=== PATIENT | male | born 1940 | race Caucasian/White ===

== ENCOUNTER 2021-06-22 10:27 | Inpatient (IN) | payer MEDICARE ==
[2021-06-22 11:07] LABS: #Basophils 0.1 10x3/uL (0.0-0.2); #Eosinphils 0.3 10x3/uL (0.0-0.5); #Monocytes 0.7 10x3/uL (0.0-1.1); #Neutrophils 5.8 10x3/uL (1.5-8.4); %Basophils 0.7 % (0.0-2.0); %Eosinophils 3.5 % (0.0-6.0); %Lymphocytes 9.1 % (18.0-47.0); %Monocytes 9.6 % (0.0-10.0); %Neutrophils 76.1 % (40.0-75.0); Hemoglobin 10.5 g/dL (13.5-17.5); Mean Corpuscular HGB CONC 31.2 g/dL (32.0-36.0); Mean Corpuscular Hemoglobin 32.5 pg (27.0-33.0); Mean Corpuscular Volume 104.3 fl (81.2-95.1); Mean Platelet Volume 9.4 fl (7.4-10.4); Platelet Count 168 10x3/uL (150-450); RBC Distribution Width 18.9 % (11.5-14.5); Red Blood Cell (RBC) Count 3.23 10x6/uL (4.32-5.72); White Blood Cell (WBC) Count 7.6 10x3/uL (3.5-10.5)
[2021-06-22 11:22] LABS: ALT (SGPT) 14 U/L (8-55); AST (SGOT) 21 U/L (5-34); Albumin 3.6 g/dL (3.4-4.8); Alkaline Phosphatase 82 U/L (40-110); Anion Gap 17 mmol/L (10-20); BUN (Urea Nitrogen) 66 mg/dL (8.4-25.7); Bilirubin, Total 0.8 mg/dL (0.2-1.2); Calc. Creatinine Clearance 0 mL/min (70-130); Calcium 9.4 mg/dL (7.8-10.44); Carbon Dioxide 30 mmol/L (23-31); Chloride 94 mmol/L (98-107); Globulin 3.4 g/dL (2.4-3.5); Glucose 257 mg/dL (83-110); Potassium 3.8 mmol/L (3.5-5.1); Sodium 137 mmol/L (136-145)
[2021-06-22] MEDS ORDERED: Furosemide 40 MG/4 ML VIAL ONE (12:51)
[2021-06-22] MEDS ORDERED: Ondansetron PF 4 MG/2 ML Vial IVP PRN (14:24)
[2021-06-22 15:12] LABS: Bilirubin Neg (Negative); Clarity Clear (Clear); Glucose, Urine (Dipstick) Normal (Negative); Leukocyte 25 (Negative); Nitrite Negative (Negative); Urobilinogen Normal mg/dL (Less than 2)
[2021-06-22 15:23] LABS: Urine Culture Reflex No No
[2021-06-22 15:24] LABS: Protein, Urine (Dipstick) Negative (Neg-Trace); Specific Gravity, Urine 1.005 (1.002-1.036)
[2021-06-22 15:25] LABS: Blood, Urine Negative (Negative); Ketone, Urine Negative (Negative)
[2021-06-22 15:30] LABS: Bacteria/HPF None Seen HPF (None Seen); RBC/HPF None Seen HPF (0-3); Squamous Epithelial None Seen HPF (0-3); WBC/HPF 0-3 HPF (0-3)
[2021-06-22] MEDS: Heparin 5,000 UNITS/ML VIAL SC SCH ×2 (17:05→21:09)
[2021-06-22] MEDS ORDERED: Dextrose 5% in Water 1,000 ML IV PRN (21:21)
[2021-06-22] MEDS ORDERED: HumaLOG 300 UNITS/3 ML VIAL SC PRN (21:21)
[2021-06-22] MEDS ORDERED: Dextrose 50% Abboject 50 ML SYRINGE SLOW IVP PRN (21:21)
[2021-06-22] MEDS ORDERED: hydrALAZINE 25 MG TAB PO SCH (22:45)
[2021-06-23] MEDS: Furosemide 100 MG in Sodium Chloride 0.9% 100 ML IVPB SCH ×4 (00:38→20:29)
[2021-06-23 00:58] LABS: SARS-CoV-2 PCR by NAA Not Detected (NotDetected)
[2021-06-23 07:04] LABS: #Basophils 0.1 10x3/uL (0.0-0.2); #Eosinphils 0.4 10x3/uL (0.0-0.5); #Monocytes 0.9 10x3/uL (0.0-1.1); #Neutrophils 5.5 10x3/uL (1.5-8.4); %Basophils 0.8 % (0.0-2.0); %Eosinophils 4.6 % (0.0-6.0); %Lymphocytes 11.1 % (18.0-47.0); %Monocytes 11.3 % (0.0-10.0); %Neutrophils 71.2 % (40.0-75.0); Hemoglobin 10.1 g/dL (13.5-17.5); Mean Corpuscular HGB CONC 30.2 g/dL (32.0-36.0); Mean Corpuscular Hemoglobin 31.7 pg (27.0-33.0); Mean Corpuscular Volume 104.7 fl (81.2-95.1); Mean Platelet Volume 9.3 fl (7.4-10.4); Platelet Count 180 10x3/uL (150-450); RBC Distribution Width 18.7 % (11.5-14.5); Red Blood Cell (RBC) Count 3.19 10x6/uL (4.32-5.72); White Blood Cell (WBC) Count 7.7 10x3/uL (3.5-10.5)
[2021-06-23 07:20] LABS: Prothrombin Time 11.4 sec (9.5-12.1)
[2021-06-23 07:27] LABS: ALT (SGPT) 15 U/L (8-55); AST (SGOT) 21 U/L (5-34); Albumin 3.5 g/dL (3.4-4.8); Alkaline Phosphatase 87 U/L (40-110); Anion Gap 16 mmol/L (10-20); BUN (Urea Nitrogen) 62 mg/dL (8.4-25.7); Bilirubin, Total 0.9 mg/dL (0.2-1.2); Calc. Creatinine Clearance 44 mL/min (70-130); Calcium 8.5 mg/dL (7.8-10.44); Carbon Dioxide 32 mmol/L (23-31); Chloride 98 mmol/L (98-107); Cholesterol 90 mg/dl (< 200 Desired); Globulin 2.7 g/dL (2.4-3.5); Glucose 87 mg/dL (83-110); HDL Cholesterol 30 mg/dL (>60 Neg Risk); LDL Cholesterol, Calculated 36 mg/dL; Magnesium 2.2 mg/dL (1.6-2.6); Phosphorus 4.8 mg/dL (2.3-4.7); Potassium 3.8 mmol/L (3.5-5.1); Protein, Total 6.2 g/dL (5.8-8.1); Sodium 142 mmol/L (136-145); Triglycerides 122 mg/dL (Less than 150)
[2021-06-23] MEDS: Clobetasol 0.05% Cream 15 gm Tube TOP SCH ×2 (09:00→20:36)
[2021-06-23] MEDS: Atorvastatin Calcium 40 MG TAB PO SCH (09:33)
[2021-06-23] MEDS: Clopidogrel Bisulfate 75 MG TAB PO SCH (09:33)
[2021-06-23] MEDS: Carvedilol 25 MG TAB PO SCH ×2 (09:33→16:01)
[2021-06-23] MEDS: Cholecalciferol 1,000 UNITS (25 MCG) TAB PO SCH (09:33)
[2021-06-23] MEDS: Heparin 5,000 UNITS/ML VIAL SC SCH ×3 (09:34→20:02)
[2021-06-23] MEDS: Amlodipine 10 MG TAB PO SCH (09:34)
[2021-06-23] MEDS: hydrALAZINE 25 MG TAB PO SCH ×3 (10:10→20:02)
[2021-06-23 11:28] LABS: Hemoglobin A1c 4.8 % (4.0-6.0)
[2021-06-24 05:27] LABS: #Basophils 0.1 10x3/uL (0.0-0.2); #Eosinphils 0.3 10x3/uL (0.0-0.5); #Monocytes 0.9 10x3/uL (0.0-1.1); #Neutrophils 4.9 10x3/uL (1.5-8.4); %Basophils 0.7 % (0.0-2.0); %Eosinophils 3.6 % (0.0-6.0); %Lymphocytes 10.5 % (18.0-47.0); %Neutrophils 71.5 % (40.0-75.0); Hemoglobin 9.9 g/dL (13.5-17.5); Mean Corpuscular Hemoglobin 32.5 pg (27.0-33.0); Mean Corpuscular Volume 104.6 fl (81.2-95.1); Mean Platelet Volume 9.2 fl (7.4-10.4); Platelet Count 167 10x3/uL (150-450); RBC Distribution Width 18.4 % (11.5-14.5); Red Blood Cell (RBC) Count 3.05 10x6/uL (4.32-5.72); White Blood Cell (WBC) Count 6.9 10x3/uL (3.5-10.5)
[2021-06-24 05:44] LABS: Prothrombin Time 11.2 sec (9.5-12.1)
[2021-06-24 05:45] LABS: ALT (SGPT) 14 U/L (8-55); AST (SGOT) 19 U/L (5-34); Albumin 3.5 g/dL (3.4-4.8); Alkaline Phosphatase 80 U/L (40-110); Anion Gap 14 mmol/L (10-20); BUN (Urea Nitrogen) 62 mg/dL (8.4-25.7); Bilirubin, Total 0.9 mg/dL (0.2-1.2); Calc. Creatinine Clearance 42 mL/min (70-130); Calcium 8.3 mg/dL (7.8-10.44); Carbon Dioxide 35 mmol/L (23-31); Chloride 98 mmol/L (98-107); Globulin 2.7 g/dL (2.4-3.5); Glucose 98 mg/dL (83-110); Magnesium 2.3 mg/dL (1.6-2.6); Phosphorus 5.1 mg/dL (2.3-4.7); Potassium 3.4 mmol/L (3.5-5.1); Protein, Total 6.2 g/dL (5.8-8.1); Sodium 144 mmol/L (136-145)
[2021-06-24] MEDS: Furosemide 100 MG in Sodium Chloride 0.9% 100 ML IVPB SCH ×2 (05:51→11:59)
[2021-06-24 05:58] VITALS: BMI 41.5
[2021-06-24] MEDS ORDERED: Potassium Chloride 20 MEQ TAB PO SCH (07:30)
[2021-06-24] MEDS: Cholecalciferol 1,000 UNITS (25 MCG) TAB PO SCH (08:58)
[2021-06-24] MEDS: hydrALAZINE 25 MG TAB PO SCH ×3 (08:59→20:53)
[2021-06-24] MEDS: Carvedilol 25 MG TAB PO SCH ×2 (08:59→15:55)
[2021-06-24] MEDS: Clopidogrel Bisulfate 75 MG TAB PO SCH (09:00)
[2021-06-24] MEDS: Heparin 5,000 UNITS/ML VIAL SC SCH ×3 (09:00→20:52)
[2021-06-24] MEDS: Atorvastatin Calcium 40 MG TAB PO SCH (09:00)
[2021-06-24] MEDS: Amlodipine 10 MG TAB PO SCH (09:00)
[2021-06-24] MEDS: Clobetasol 0.05% Cream 15 gm Tube TOP SCH ×2 (09:01→21:03)
[2021-06-24] MEDS: Acetaminophen 325 MG TAB PO PRN (09:48)
[2021-06-24 15:26] LABS: Anion Gap 15 mmol/L (10-20); BUN (Urea Nitrogen) 60 mg/dL (8.4-25.7); Calc. Creatinine Clearance 42 mL/min (70-130); Calcium 8.5 mg/dL (7.8-10.44); Carbon Dioxide 32 mmol/L (23-31); Chloride 98 mmol/L (98-107); Glucose 187 mg/dL (83-110); Potassium 4.2 mmol/L (3.5-5.1); Sodium 141 mmol/L (136-145)
[2021-06-24] MEDS ORDERED: Torsemide 100 MG TAB PO SCH (16:00)
[2021-06-25 04:45] LABS: #Eosinphils 0.3 10x3/uL (0.0-0.5); #Monocytes 0.8 10x3/uL (0.0-1.1); %Basophils 0.5 % (0.0-2.0); %Eosinophils 4.3 % (0.0-6.0); %Monocytes 13.7 % (0.0-10.0); %Neutrophils 65.8 % (40.0-75.0); Hemoglobin 9.7 g/dL (13.5-17.5); Mean Corpuscular HGB CONC 30.1 g/dL (32.0-36.0); Mean Corpuscular Volume 106.3 fl (81.2-95.1); Mean Platelet Volume 8.7 fl (7.4-10.4); Platelet Count 166 10x3/uL (150-450); RBC Distribution Width 17.9 % (11.5-14.5); Red Blood Cell (RBC) Count 3.03 10x6/uL (4.32-5.72); White Blood Cell (WBC) Count 6.1 10x3/uL (3.5-10.5)
[2021-06-25 05:03] LABS: Prothrombin Time 11.3 sec (9.5-12.1)
[2021-06-25 05:34] LABS: ALT (SGPT) 13 U/L (8-55); AST (SGOT) 17 U/L (5-34); Albumin 3.6 g/dL (3.4-4.8); Alkaline Phosphatase 78 U/L (40-110); Anion Gap 15 mmol/L (10-20); BUN (Urea Nitrogen) 64 mg/dL (8.4-25.7); Bilirubin, Total 0.8 mg/dL (0.2-1.2); Calc. Creatinine Clearance 43 mL/min (70-130); Calcium 8.4 mg/dL (7.8-10.44); Carbon Dioxide 33 mmol/L (23-31); Chloride 99 mmol/L (98-107); Globulin 2.7 g/dL (2.4-3.5); Glucose 107 mg/dL (83-110); Magnesium 2.2 mg/dL (1.6-2.6); Phosphorus 3.9 mg/dL (2.3-4.7); Potassium 3.6 mmol/L (3.5-5.1); Protein, Total 6.3 g/dL (5.8-8.1); Sodium 143 mmol/L (136-145)
[2021-06-25] MEDS: Acetaminophen 325 MG TAB PO PRN (06:41)
[2021-06-25] MEDS ORDERED: traMADol HCl 50 MG TAB PO PRN ×2 (07:46→13:32)
[2021-06-25] MEDS: Clopidogrel Bisulfate 75 MG TAB PO SCH (08:01)
[2021-06-25] MEDS: hydrALAZINE 25 MG TAB PO SCH ×3 (08:01→20:14)
[2021-06-25] MEDS: Carvedilol 25 MG TAB PO SCH ×2 (08:01→16:25)
[2021-06-25] MEDS: Atorvastatin Calcium 40 MG TAB PO SCH (08:02)
[2021-06-25] MEDS: Cholecalciferol 1,000 UNITS (25 MCG) TAB PO SCH (08:02)
[2021-06-25] MEDS: Amlodipine 10 MG TAB PO SCH (08:02)
[2021-06-25] MEDS: Torsemide 100 MG TAB PO SCH ×2 (08:03→15:51)
[2021-06-25] MEDS: Heparin 5,000 UNITS/ML VIAL SC SCH ×3 (08:04→20:14)
[2021-06-25] MEDS: Clobetasol 0.05% Cream 15 gm Tube TOP SCH ×2 (08:04→20:14)
[2021-06-25] MEDS: HYDROcodone/Acetaminophen 5/325 mg Tablet PO PRN ×2 (08:21→12:28)
[2021-06-25] MEDS: Cyclobenzaprine 10 MG TAB PO SCH ×3 (09:28→20:13)
[2021-06-25] MEDS: Lidocaine 5% Patch TD SCH (09:28)
[2021-06-25] MEDS ORDERED: Metolazone 5 MG TAB PO SCH (15:30)
[2021-06-25] MEDS ORDERED: Furosemide 40 MG/4 ML VIAL SLOW IVP SCH (16:45)
[2021-06-25] MEDS ORDERED: Transdermal Patch Removal TOP SCH (21:00)
[2021-06-26] MEDS: HYDROcodone/Acetaminophen 5/325 mg Tablet PO PRN ×3 (00:17→11:51)
[2021-06-26 06:19] LABS: #Basophils 0.1 10x3/uL (0.0-0.2); #Eosinphils 0.3 10x3/uL (0.0-0.5); #Monocytes 0.8 10x3/uL (0.0-1.1); #Neutrophils 4.1 10x3/uL (1.5-8.4); %Basophils 0.8 % (0.0-2.0); %Eosinophils 4.6 % (0.0-6.0); %Lymphocytes 14.5 % (18.0-47.0); %Monocytes 13.7 % (0.0-10.0); %Neutrophils 65.7 % (40.0-75.0); Hemoglobin 10.3 g/dL (13.5-17.5); Mean Corpuscular HGB CONC 30.3 g/dL (32.0-36.0); Mean Corpuscular Volume 105.6 fl (81.2-95.1); Mean Platelet Volume 9.3 fl (7.4-10.4); Platelet Count 162 10x3/uL (150-450); RBC Distribution Width 17.2 % (11.5-14.5); Red Blood Cell (RBC) Count 3.22 10x6/uL (4.32-5.72); White Blood Cell (WBC) Count 6.2 10x3/uL (3.5-10.5)
[2021-06-26 06:34] LABS: Prothrombin Time 11.1 sec (9.5-12.1)
[2021-06-26 06:53] LABS: ALT (SGPT) 14 U/L (8-55); AST (SGOT) 19 U/L (5-34); Albumin 3.7 g/dL (3.4-4.8); Alkaline Phosphatase 78 U/L (40-110); Anion Gap 16 mmol/L (10-20); BUN (Urea Nitrogen) 67 mg/dL (8.4-25.7); Bilirubin, Total 0.9 mg/dL (0.2-1.2); Calc. Creatinine Clearance 18 mL/min (70-130); Calcium 8.6 mg/dL (7.8-10.44); Carbon Dioxide 33 mmol/L (23-31); Chloride 96 mmol/L (98-107); Globulin 2.9 g/dL (2.4-3.5); Glucose 116 mg/dL (83-110); Magnesium 2.1 mg/dL (1.6-2.6); Phosphorus 4.5 mg/dL (2.3-4.7); Potassium 3.2 mmol/L (3.5-5.1); Protein, Total 6.6 g/dL (5.8-8.1); Sodium 142 mmol/L (136-145)
[2021-06-26] MEDS ORDERED: Potassium Chloride 20 MEQ TAB PO SCH ×2 (08:00→17:00)
[2021-06-26] MEDS: Clopidogrel Bisulfate 75 MG TAB PO SCH (09:13)
[2021-06-26] MEDS: Lidocaine 5% Patch TD SCH (09:13)
[2021-06-26] MEDS: Heparin 5,000 UNITS/ML VIAL SC SCH ×2 (09:14→16:17)
[2021-06-26] MEDS: Cholecalciferol 1,000 UNITS (25 MCG) TAB PO SCH (09:14)
[2021-06-26] MEDS: Atorvastatin Calcium 40 MG TAB PO SCH (09:14)
[2021-06-26] MEDS: Amlodipine 10 MG TAB PO SCH (09:14)
[2021-06-26] MEDS: Carvedilol 25 MG TAB PO SCH (09:14)
[2021-06-26] MEDS: hydrALAZINE 25 MG TAB PO SCH ×2 (09:15→14:41)
[2021-06-26] MEDS: Torsemide 100 MG TAB PO SCH ×2 (09:15→14:55)
[2021-06-26] MEDS: Cyclobenzaprine 10 MG TAB PO SCH ×2 (09:15→14:41)
[2021-06-26] MEDS: Clobetasol 0.05% Cream 15 gm Tube TOP SCH (09:15)
[2021-06-26 12:01] VITALS: BP 137/65; TEMP 97.4
[2021-06-26] MEDS ORDERED: Transdermal Patch Removal TOP SCH (21:00)
== END 2021-06-26 16:17 | disposition home or self-care (01) | DRG 291 ==
LOC: CSHERS 10:27 → CSHTELE 14:37
PROVIDERS: ADMIT Family Medicine; ATTEND Family Medicine
DX: I13.0 Hypertensive heart and chronic kidney disease with heart failure and stage 1 through stage 4 chronic kidney disease, or unspecified chronic kidney disease (principal); I50.43 Acute on chronic combined systolic (congestive) and diastolic (congestive) heart failure; J96.01 Acute respiratory failure with hypoxia; N18.4 Chronic kidney disease, stage 4 (severe); N17.9 Acute kidney failure, unspecified; Z20.822 Contact with and (suspected) exposure to COVID-19; Z68.43 Body mass index [BMI] 50.0-59.9, adult; E11.22 Type 2 diabetes mellitus with diabetic chronic kidney disease; E11.65 Type 2 diabetes mellitus with hyperglycemia; I25.10 Atherosclerotic heart disease of native coronary artery without angina pectoris; D50.9 Iron deficiency anemia, unspecified; D63.1 Anemia in chronic kidney disease; Z95.1 Presence of aortocoronary bypass graft; Z87.891 Personal history of nicotine dependence; Z95.2 Presence of prosthetic heart valve; Z82.5 Family history of asthma and other chronic lower respiratory diseases; E11.51 Type 2 diabetes mellitus with diabetic peripheral angiopathy without gangrene; G47.30 Sleep apnea, unspecified; E87.6 Hypokalemia; E66.01 Morbid (severe) obesity due to excess calories; M54.89 Other dorsalgia; Z79.84 Long term (current) use of oral hypoglycemic drugs; Z79.891 Long term (current) use of opiate analgesic; Z79.899 Other long term (current) drug therapy
CPT/HCPCS: 36415; 36416; 71045; 80053; 80061; 81001; 83036; 83735; 83880; 84100; 84145; 84443; 84484; 85025; 85610; 87086; 93005; 93306; 94760; 96374; 97139; J1644; J1940; J3490; U0003; U0005

== ENCOUNTER 2021-10-14 14:06 | Inpatient (IN) | payer MEDICARE ==
[2021-10-14 14:39] LABS: #Basophils 0.1 10x3/uL (0.0-0.2); #Eosinphils 0.3 10x3/uL (0.0-0.5); #Monocytes 0.9 10x3/uL (0.0-1.1); #Neutrophils 6.1 10x3/uL (1.5-8.4); %Basophils 0.6 % (0.0-2.0); %Lymphocytes 10.9 % (18.0-47.0); %Neutrophils 72.2 % (40.0-75.0); Hemoglobin 10.3 g/dL (13.5-17.5); Mean Corpuscular HGB CONC 31.1 g/dL (32.0-36.0); Mean Corpuscular Hemoglobin 32.1 pg (27.0-33.0); Mean Corpuscular Volume 103.1 fl (81.2-95.1); Platelet Count 161 10x3/uL (150-450); RBC Distribution Width 16.4 % (11.5-14.5); Red Blood Cell (RBC) Count 3.21 10x6/uL (4.32-5.72); White Blood Cell (WBC) Count 8.5 10x3/uL (3.5-10.5)
[2021-10-14 14:51] LABS: ALT (SGPT) 17 U/L (8-55); AST (SGOT) 21 U/L (5-34); Alkaline Phosphatase 76 U/L (40-110); Anion Gap 15 mmol/L (10-20); BUN (Urea Nitrogen) 107 mg/dL (8.4-25.7); Calc. Creatinine Clearance 0 mL/min (70-130); Calcium 8.7 mg/dL (7.8-10.44); Carbon Dioxide 32 mmol/L (23-31); Chloride 94 mmol/L (98-107); Glucose 229 mg/dL (83-110); Potassium 3.3 mmol/L (3.5-5.1); Sodium 138 mmol/L (136-145)
[2021-10-14] MEDS ORDERED: Potassium Chloride 20 MEQ TAB ONE (15:04)
[2021-10-14] MEDS ORDERED: Furosemide 100 MG/10 ML VIAL ONE (15:04)
[2021-10-14 15:13] LABS: CKMB 0.9 ng/mL (0-6.6)
[2021-10-14] MEDS ORDERED: Ondansetron PF 4 MG/2 ML Vial IVP PRN (16:52)
[2021-10-14] MEDS ORDERED: Acetaminophen 325 MG TAB PO PRN (16:52)
[2021-10-14 17:56] LABS: Troponin I 0.025 ng/mL (< 0.028)
[2021-10-14 18:26] VITALS: BMI 40.7
[2021-10-14] MEDS: Carvedilol 25 MG TAB PO SCH (20:24)
[2021-10-14] MEDS: Spironolactone 25 MG TAB PO SCH (20:24)
[2021-10-14] MEDS: Ferrous Sulfate 325 MG TAB PO SCH (20:24)
[2021-10-14 20:35] LABS: Troponin I 0.035 ng/mL (< 0.028)
[2021-10-14] MEDS ORDERED: Loratadine 10 MG TAB PO SCH (20:45)
[2021-10-14] MEDS ORDERED: Furosemide 40 MG/4 ML VIAL SLOW IVP SCH (21:00)
[2021-10-14] MEDS ORDERED: Furosemide 100 MG/10 ML VIAL SLOW IVP SCH (21:00)
[2021-10-15] MEDS: Furosemide 100 MG/10 ML VIAL SLOW IVP SCH ×2 (05:23→13:40)
[2021-10-15 06:16] LABS: Anion Gap 17 mmol/L (10-20); BUN (Urea Nitrogen) 102 mg/dL (8.4-25.7); Calc. Creatinine Clearance 34 mL/min (70-130); Carbon Dioxide 31 mmol/L (23-31); Chloride 97 mmol/L (98-107); Glucose 75 mg/dL (83-110); Potassium 3.2 mmol/L (3.5-5.1); Sodium 142 mmol/L (136-145)
[2021-10-15 06:59] LABS: #Eosinphils 0.5 10x3/uL (0.0-0.5); #Monocytes 0.9 10x3/uL (0.0-1.1); #Neutrophils 5.2 10x3/uL (1.5-8.4); %Basophils 0.5 % (0.0-2.0); %Eosinophils 6.5 % (0.0-6.0); %Lymphocytes 11.6 % (18.0-47.0); %Monocytes 11.8 % (0.0-10.0); %Neutrophils 68.7 % (40.0-75.0); Mean Corpuscular HGB CONC 31.2 g/dL (32.0-36.0); Mean Corpuscular Hemoglobin 32.3 pg (27.0-33.0); Mean Corpuscular Volume 103.5 fl (81.2-95.1); Mean Platelet Volume 9.4 fl (7.4-10.4); Platelet Count 161 10x3/uL (150-450); RBC Distribution Width 16.7 % (11.5-14.5); White Blood Cell (WBC) Count 7.6 10x3/uL (3.5-10.5)
[2021-10-15] MEDS: Clopidogrel Bisulfate 75 MG TAB PO SCH (08:32)
[2021-10-15] MEDS: Enoxaparin Sodium 30 MG/0.3 ML SYRINGE SC SCH (08:32)
[2021-10-15] MEDS: Atorvastatin Calcium 40 MG TAB PO SCH (08:32)
[2021-10-15] MEDS: Folic Acid 1 MG TAB PO SCH (08:32)
[2021-10-15] MEDS: Ferrous Sulfate 325 MG TAB PO SCH ×2 (08:33→20:28)
[2021-10-15] MEDS: Carvedilol 25 MG TAB PO SCH ×2 (08:33→20:42)
[2021-10-15] MEDS: Cyanocobalamin (Vitamin B-12) 1,000 MCG TAB PO SCH (08:33)
[2021-10-15] MEDS: Cholecalciferol 1,000 UNITS (25 MCG) TAB PO SCH (08:33)
[2021-10-15] MEDS: Spironolactone 25 MG TAB PO SCH ×2 (08:33→20:28)
[2021-10-15] MEDS ORDERED: Melatonin 3 MG TAB PO PRN (16:01)
[2021-10-15] MEDS ORDERED: hydrOXYzine Pamoate 25 mg Capsule PO PRN (16:02)
[2021-10-15 16:49] LABS: SARS-CoV-2 PCR by NAA Not Detected (NotDetected)
[2021-10-15] MEDS ORDERED: Carvedilol 25 MG TAB ONE (19:58)
[2021-10-15] MEDS: hydrALAZINE 25 MG TAB PO SCH (22:01)
[2021-10-16 04:23] LABS: #Eosinphils 0.5 10x3/uL (0.0-0.5); #Monocytes 1.1 10x3/uL (0.0-1.1); #Neutrophils 5.6 10x3/uL (1.5-8.4); %Basophils 0.5 % (0.0-2.0); %Lymphocytes 13.2 % (18.0-47.0); %Monocytes 12.6 % (0.0-10.0); %Neutrophils 66.7 % (40.0-75.0); Hemoglobin 10.6 g/dL (13.5-17.5); Mean Corpuscular HGB CONC 31.6 g/dL (32.0-36.0); Mean Corpuscular Hemoglobin 32.2 pg (27.0-33.0); Mean Corpuscular Volume 101.8 fl (81.2-95.1); Mean Platelet Volume 9.3 fl (7.4-10.4); Platelet Count 163 10x3/uL (150-450); RBC Distribution Width 16.3 % (11.5-14.5); Red Blood Cell (RBC) Count 3.29 10x6/uL (4.32-5.72); White Blood Cell (WBC) Count 8.4 10x3/uL (3.5-10.5)
[2021-10-16 04:41] LABS: Anion Gap 18 mmol/L (10-20); BUN (Urea Nitrogen) 96 mg/dL (8.4-25.7); Calc. Creatinine Clearance 39 mL/min (70-130); Calcium 9.4 mg/dL (7.8-10.44); Carbon Dioxide 30 mmol/L (23-31); Chloride 97 mmol/L (98-107); Glucose 102 mg/dL (83-110); Potassium 3.2 mmol/L (3.5-5.1); Sodium 142 mmol/L (136-145)
[2021-10-16] MEDS: hydrALAZINE 25 MG TAB PO SCH ×2 (05:43→14:40)
[2021-10-16] MEDS: Furosemide 100 MG/10 ML VIAL SLOW IVP SCH ×2 (05:44→14:41)
[2021-10-16] MEDS ORDERED: glipiZIDE 10 MG TAB PO SCH (07:30)
[2021-10-16] MEDS ORDERED: Amlodipine 10 MG TAB PO SCH (09:00)
[2021-10-16] MEDS: Atorvastatin Calcium 40 MG TAB PO SCH (09:06)
[2021-10-16] MEDS: Enoxaparin Sodium 30 MG/0.3 ML SYRINGE SC SCH (09:06)
[2021-10-16] MEDS: Cyanocobalamin (Vitamin B-12) 1,000 MCG TAB PO SCH (09:06)
[2021-10-16] MEDS: Clopidogrel Bisulfate 75 MG TAB PO SCH (09:06)
[2021-10-16] MEDS: Spironolactone 25 MG TAB PO SCH (09:06)
[2021-10-16] MEDS: Folic Acid 1 MG TAB PO SCH (09:06)
[2021-10-16] MEDS: Carvedilol 25 MG TAB PO SCH (09:06)
[2021-10-16] MEDS: Ferrous Sulfate 325 MG TAB PO SCH (09:06)
[2021-10-16] MEDS: Cholecalciferol 1,000 UNITS (25 MCG) TAB PO SCH (09:06)
[2021-10-16 15:57] VITALS: BP 149/63; TEMP 97.7
[2021-10-17] MEDS ORDERED: Heparin 5,000 UNITS/ML VIAL SC SCH (09:00)
== END 2021-10-16 15:40 | disposition home or self-care (01) | DRG 291 ==
LOC: CSHERS 14:06 → CSHTELE 16:29
PROVIDERS: ADMIT Internal Medicine; ATTEND Hospitalist
DX: I13.0 Hypertensive heart and chronic kidney disease with heart failure and stage 1 through stage 4 chronic kidney disease, or unspecified chronic kidney disease (principal); I50.43 Acute on chronic combined systolic (congestive) and diastolic (congestive) heart failure; J96.01 Acute respiratory failure with hypoxia; N18.4 Chronic kidney disease, stage 4 (severe); N17.9 Acute kidney failure, unspecified; Z68.41 Body mass index [BMI] 40.0-44.9, adult; E11.65 Type 2 diabetes mellitus with hyperglycemia; G47.33 Obstructive sleep apnea (adult) (pediatric); I25.10 Atherosclerotic heart disease of native coronary artery without angina pectoris; E87.6 Hypokalemia; D63.1 Anemia in chronic kidney disease; K21.9 Gastro-esophageal reflux disease without esophagitis; E11.51 Type 2 diabetes mellitus with diabetic peripheral angiopathy without gangrene; Z20.822 Contact with and (suspected) exposure to COVID-19; E66.01 Morbid (severe) obesity due to excess calories; E11.22 Type 2 diabetes mellitus with diabetic chronic kidney disease; D50.9 Iron deficiency anemia, unspecified; Z79.899 Other long term (current) drug therapy; Z79.02 Long term (current) use of antithrombotics/antiplatelets; Z95.1 Presence of aortocoronary bypass graft; Z87.891 Personal history of nicotine dependence; Z95.3 Presence of xenogenic heart valve
CPT/HCPCS: 36415; 71045; 80048; 80053; 82553; 83880; 84484; 85025; 93005; 96374; J1650; J1940; U0003; U0005

== ENCOUNTER 2021-11-13 15:15 | Inpatient (IN) | payer MEDICARE ==
[2021-11-13] MEDS ORDERED: Aspirin Chewable 81 MG TAB ONE (15:41)
[2021-11-13] MEDS ORDERED: Nitroglycerin 0.4 MG TAB 1 EACH ONE (15:42)
[2021-11-13 15:57] LABS: #Basophils 0.1 10x3/uL (0.0-0.2); #Eosinphils 0.5 10x3/uL (0.0-0.5); #Monocytes 0.9 10x3/uL (0.0-1.1); %Basophils 0.7 % (0.0-2.0); %Eosinophils 5.3 % (0.0-6.0); %Lymphocytes 10.8 % (18.0-47.0); %Monocytes 10.7 % (0.0-10.0); %Neutrophils 70.8 % (40.0-75.0); Hemoglobin 9.9 g/dL (13.5-17.5); Mean Corpuscular Hemoglobin 32.6 pg (27.0-33.0); Mean Corpuscular Volume 104.9 fl (81.2-95.1); Mean Platelet Volume 9.4 fl (7.4-10.4); Platelet Count 149 10x3/uL (150-450); RBC Distribution Width 16.9 % (11.5-14.5); Red Blood Cell (RBC) Count 3.04 10x6/uL (4.32-5.72); White Blood Cell (WBC) Count 8.4 10x3/uL (3.5-10.5)
[2021-11-13 16:04] LABS: ALT (SGPT) 16 U/L (8-55); AST (SGOT) 21 U/L (5-34); Albumin 3.9 g/dL (3.4-4.8); Alkaline Phosphatase 69 U/L (40-110); Anion Gap 19 mmol/L (10-20); BUN (Urea Nitrogen) 96 mg/dL (8.4-25.7); Calc. Creatinine Clearance 0 mL/min (70-130); Calcium 8.9 mg/dL (7.8-10.44); Carbon Dioxide 32 mmol/L (23-31); Chloride 94 mmol/L (98-107); Globulin 2.7 g/dL (2.4-3.5); Glucose 175 mg/dL (83-110); Potassium 3.4 mmol/L (3.5-5.1); Protein, Total 6.6 g/dL (5.8-8.1); Sodium 142 mmol/L (136-145)
[2021-11-13 16:22] LABS: CKMB 1.1 ng/mL (0-6.6)
[2021-11-13] MEDS ORDERED: Furosemide 40 MG/4 ML VIAL ONE (16:25)
[2021-11-13 16:32] LABS: Bilirubin Neg (Negative); Blood, Urine Negative (Negative); Clarity Clear (Clear); Glucose, Urine (Dipstick) Normal (Negative); Ketone, Urine Negative (Negative); Leukocyte Negative (Negative); Nitrite Negative (Negative); Protein, Urine (Dipstick) Negative (Neg-Trace); Urobilinogen Normal mg/dL (Less than 2)
[2021-11-13] MEDS ORDERED: Acetaminophen 325 MG TAB PO PRN (17:14)
[2021-11-13 17:17] LABS: SARS-CoV-2 NAA Rapid Test Not Detected (NotDetected)
[2021-11-13] MEDS ORDERED: Dextrose 5% in Water 1,000 ML IV PRN (17:46)
[2021-11-13] MEDS ORDERED: Dextrose 50% Abboject 50 ML SYRINGE SLOW IVP PRN (17:46)
[2021-11-13 18:46] VITALS: BMI 40.8
[2021-11-13] MEDS: hydrALAZINE 25 MG TAB PO SCH (20:48)
[2021-11-13] MEDS: Carvedilol 25 MG TAB PO SCH (20:48)
[2021-11-13] MEDS: Spironolactone 25 MG TAB PO SCH (20:48)
[2021-11-13] MEDS: traZODone HCl 50 MG TAB PO PRN (22:17)
[2021-11-14 04:41] LABS: #Basophils 0.1 10x3/uL (0.0-0.2); #Eosinphils 0.5 10x3/uL (0.0-0.5); #Monocytes 0.9 10x3/uL (0.0-1.1); #Neutrophils 5.9 10x3/uL (1.5-8.4); %Basophils 0.7 % (0.0-2.0); %Eosinophils 6.1 % (0.0-6.0); %Lymphocytes 10.1 % (18.0-47.0); %Monocytes 10.5 % (0.0-10.0); %Neutrophils 71.4 % (40.0-75.0); Hemoglobin 9.2 g/dL (13.5-17.5); Mean Corpuscular HGB CONC 31.1 g/dL (32.0-36.0); Mean Corpuscular Hemoglobin 33.2 pg (27.0-33.0); Mean Corpuscular Volume 106.9 fl (81.2-95.1); Mean Platelet Volume 9.7 fl (7.4-10.4); Platelet Count 139 10x3/uL (150-450); RBC Distribution Width 16.7 % (11.5-14.5); Red Blood Cell (RBC) Count 2.77 10x6/uL (4.32-5.72); White Blood Cell (WBC) Count 8.3 10x3/uL (3.5-10.5)
[2021-11-14 05:12] LABS: Anion Gap 18 mmol/L (10-20); BUN (Urea Nitrogen) 93 mg/dL (8.4-25.7); Calc. Creatinine Clearance 39 mL/min (70-130); Calcium 8.9 mg/dL (7.8-10.44); Carbon Dioxide 34 mmol/L (23-31); Chloride 94 mmol/L (98-107); Glucose 68 mg/dL (83-110); Sodium 143 mmol/L (136-145)
[2021-11-14] MEDS: Furosemide 40 MG/4 ML VIAL SLOW IVP SCH ×2 (06:20→14:21)
[2021-11-14] MEDS ORDERED: Potassium Chloride 20 MEQ TAB PO SCH (09:30)
[2021-11-14] MEDS: Enoxaparin Sodium 30 MG/0.3 ML SYRINGE SC SCH (09:41)
[2021-11-14] MEDS: Cholecalciferol 1,000 UNITS (25 MCG) TAB PO SCH (09:42)
[2021-11-14] MEDS: hydrALAZINE 25 MG TAB PO SCH ×3 (09:42→20:22)
[2021-11-14] MEDS: Amlodipine 10 MG TAB PO SCH (09:43)
[2021-11-14] MEDS: Clopidogrel Bisulfate 75 MG TAB PO SCH (09:43)
[2021-11-14] MEDS: Spironolactone 25 MG TAB PO SCH ×2 (09:43→20:20)
[2021-11-14] MEDS: Folic Acid 1 MG TAB PO SCH (09:43)
[2021-11-14] MEDS: Famotidine 20 MG TAB PO SCH (09:43)
[2021-11-14] MEDS: Atorvastatin Calcium 40 MG TAB PO SCH (09:43)
[2021-11-14] MEDS: Carvedilol 25 MG TAB PO SCH ×2 (09:44→20:22)
[2021-11-14] MEDS: glipiZIDE 10 MG TAB PO SCH (09:46)
[2021-11-14] MEDS: Pioglitazone HCl 45 MG TAB PO SCH (09:47)
[2021-11-14] MEDS: traZODone HCl 50 MG TAB PO PRN (21:56)
[2021-11-14] MEDS: HumaLOG 300 UNITS/3 ML VIAL SC PRN (22:55)
[2021-11-15 04:40] LABS: #Basophils 0.1 10x3/uL (0.0-0.2); #Eosinphils 0.4 10x3/uL (0.0-0.5); #Neutrophils 5.4 10x3/uL (1.5-8.4); %Basophils 0.6 % (0.0-2.0); %Eosinophils 5.1 % (0.0-6.0); %Lymphocytes 11.1 % (18.0-47.0); %Monocytes 12.7 % (0.0-10.0); %Neutrophils 69.5 % (40.0-75.0); Hemoglobin 9.1 g/dL (13.5-17.5); Mean Corpuscular HGB CONC 30.7 g/dL (32.0-36.0); Mean Corpuscular Volume 107.2 fl (81.2-95.1); Mean Platelet Volume 9.2 fl (7.4-10.4); Platelet Count 136 10x3/uL (150-450); RBC Distribution Width 16.9 % (11.5-14.5); Red Blood Cell (RBC) Count 2.76 10x6/uL (4.32-5.72); White Blood Cell (WBC) Count 7.8 10x3/uL (3.5-10.5)
[2021-11-15 04:55] LABS: Anion Gap 21 mmol/L (10-20); BUN (Urea Nitrogen) 97 mg/dL (8.4-25.7); Calc. Creatinine Clearance 0 mL/min (70-130); Calcium 8.7 mg/dL (7.8-10.44); Carbon Dioxide 30 mmol/L (23-31); Chloride 96 mmol/L (98-107); Glucose 82 mg/dL (83-110); Magnesium 2.5 mg/dL (1.6-2.6); Potassium 3.7 mmol/L (3.5-5.1); Sodium 143 mmol/L (136-145)
[2021-11-15 05:29] LABS: Hypochromia SLIGHT = 6-15 cells (100X) (0-5/hpf); Macrocytosis SLIGHT = 6-15 cells (100X) (0-5/hpf); Platelet Morphology Comment Appears Adequate
[2021-11-15] MEDS: Furosemide 40 MG/4 ML VIAL SLOW IVP SCH ×2 (06:57→13:40)
[2021-11-15] MEDS: Pioglitazone HCl 45 MG TAB PO SCH (08:16)
[2021-11-15] MEDS: Folic Acid 1 MG TAB PO SCH (08:17)
[2021-11-15] MEDS: Cholecalciferol 1,000 UNITS (25 MCG) TAB PO SCH (08:17)
[2021-11-15] MEDS: Clopidogrel Bisulfate 75 MG TAB PO SCH (08:18)
[2021-11-15] MEDS: glipiZIDE 10 MG TAB PO SCH (08:18)
[2021-11-15] MEDS: Amlodipine 10 MG TAB PO SCH (08:18)
[2021-11-15] MEDS: Carvedilol 25 MG TAB PO SCH ×2 (08:19→20:29)
[2021-11-15] MEDS: Famotidine 20 MG TAB PO SCH (08:19)
[2021-11-15] MEDS: Atorvastatin Calcium 40 MG TAB PO SCH (08:19)
[2021-11-15] MEDS: hydrALAZINE 25 MG TAB PO SCH ×3 (08:20→20:30)
[2021-11-15] MEDS: Spironolactone 25 MG TAB PO SCH ×2 (08:20→20:29)
[2021-11-15] MEDS: Enoxaparin Sodium 30 MG/0.3 ML SYRINGE SC SCH (08:21)
[2021-11-15] MEDS: HumaLOG 300 UNITS/3 ML VIAL SC PRN (22:30)
[2021-11-16 05:01] LABS: #Eosinphils 0.4 10x3/uL (0.0-0.5); #Monocytes 0.8 10x3/uL (0.0-1.1); #Neutrophils 4.7 10x3/uL (1.5-8.4); %Basophils 0.4 % (0.0-2.0); %Lymphocytes 11.6 % (18.0-47.0); %Monocytes 12.3 % (0.0-10.0); %Neutrophils 68.8 % (40.0-75.0); Hemoglobin 7.9 g/dL (13.5-17.5); Mean Corpuscular HGB CONC 30.5 g/dL (32.0-36.0); Mean Corpuscular Hemoglobin 32.9 pg (27.0-33.0); Mean Corpuscular Volume 107.9 fl (81.2-95.1); Mean Platelet Volume 9.9 fl (7.4-10.4); Platelet Count 131 10x3/uL (150-450); RBC Distribution Width 16.9 % (11.5-14.5); White Blood Cell (WBC) Count 6.8 10x3/uL (3.5-10.5)
[2021-11-16] MEDS: Furosemide 40 MG/4 ML VIAL SLOW IVP SCH (05:24)
[2021-11-16 05:33] LABS: BUN (Urea Nitrogen) 103 mg/dL (8.4-25.7); Calc. Creatinine Clearance 0 mL/min (70-130); Calcium 8.7 mg/dL (7.8-10.44); Glucose 87 mg/dL (83-110)
[2021-11-16 05:40] LABS: Anion Gap 20 mmol/L (10-20); Carbon Dioxide 32 mmol/L (23-31); Chloride 93 mmol/L (98-107); Potassium 3.2 mmol/L (3.5-5.1); Sodium 142 mmol/L (136-145)
[2021-11-16 07:30] LABS: Basophilic Stippling SLIGHT = 1-2 cells (100X) (None Seen); Elliptocytes SLIGHT = 2-5 cells (100X) (0-1/hpf); Hypochromia SLIGHT = 6-15 cells (100X) (0-5/hpf); Macrocytosis SLIGHT = 6-15 cells (100X) (0-5/hpf); Polychromasia SLIGHT = 2-3 cells (100X) (0-2/hpf); Stomatocytes SLIGHT = 2-5 cells (100X) (0-1/hpf)
[2021-11-16] MEDS ORDERED: Potassium Chloride 20 MEQ TAB PO SCH (08:00)
[2021-11-16] MEDS: Pioglitazone HCl 45 MG TAB PO SCH (08:18)
[2021-11-16] MEDS: Clopidogrel Bisulfate 75 MG TAB PO SCH (08:18)
[2021-11-16] MEDS: Carvedilol 25 MG TAB PO SCH ×2 (08:18→20:32)
[2021-11-16] MEDS: Spironolactone 25 MG TAB PO SCH ×2 (08:18→20:32)
[2021-11-16] MEDS: Amlodipine 10 MG TAB PO SCH (08:18)
[2021-11-16] MEDS: hydrALAZINE 25 MG TAB PO SCH ×3 (08:18→20:31)
[2021-11-16] MEDS: Cholecalciferol 1,000 UNITS (25 MCG) TAB PO SCH (08:18)
[2021-11-16] MEDS: Famotidine 20 MG TAB PO SCH (08:18)
[2021-11-16] MEDS: Folic Acid 1 MG TAB PO SCH (08:18)
[2021-11-16] MEDS: glipiZIDE 10 MG TAB PO SCH (08:18)
[2021-11-16] MEDS: Enoxaparin Sodium 30 MG/0.3 ML SYRINGE SC SCH (08:21)
[2021-11-16] MEDS: HumaLOG 300 UNITS/3 ML VIAL SC PRN ×2 (12:07→20:38)
[2021-11-16] MEDS: Atorvastatin Calcium 40 MG TAB PO SCH (20:32)
[2021-11-17 05:40] LABS: Albumin 3.4 g/dL (3.4-4.8); Anion Gap 18 mmol/L (10-20); BUN (Urea Nitrogen) 111 mg/dL (8.4-25.7); BUN/Creatinine Ratio 32.84; Calc. Creatinine Clearance 0 mL/min (70-130); Calcium 8.4 mg/dL (7.8-10.44); Carbon Dioxide 34 mmol/L (23-31); Chloride 92 mmol/L (98-107); Glucose 96 mg/dL (83-110); Phosphorus 3.8 mg/dL (2.3-4.7); Potassium 3.9 mmol/L (3.5-5.1); Sodium 140 mmol/L (136-145)
[2021-11-17] MEDS: Folic Acid 1 MG TAB PO SCH (07:46)
[2021-11-17] MEDS: Famotidine 20 MG TAB PO SCH (07:46)
[2021-11-17] MEDS: glipiZIDE 10 MG TAB PO SCH (07:46)
[2021-11-17] MEDS: Pioglitazone HCl 45 MG TAB PO SCH (07:46)
[2021-11-17] MEDS: Amlodipine 10 MG TAB PO SCH (07:47)
[2021-11-17] MEDS: Clopidogrel Bisulfate 75 MG TAB PO SCH (07:47)
[2021-11-17] MEDS: Spironolactone 25 MG TAB PO SCH ×2 (07:47→20:30)
[2021-11-17] MEDS: Carvedilol 25 MG TAB PO SCH ×2 (07:47→20:30)
[2021-11-17] MEDS: hydrALAZINE 25 MG TAB PO SCH ×3 (07:47→20:31)
[2021-11-17] MEDS: Cholecalciferol 1,000 UNITS (25 MCG) TAB PO SCH (07:47)
[2021-11-17] MEDS: Enoxaparin Sodium 30 MG/0.3 ML SYRINGE SC SCH (07:50)
[2021-11-17] MEDS ORDERED: Furosemide 100 MG/10 ML VIAL SLOW IVP SCH (09:00)
[2021-11-17 10:36] LABS: Iron 56 ug/dL (65-175); Iron Binding Capacity, Total 370 mcg/dL (261-462)
[2021-11-17] MEDS: HumaLOG 300 UNITS/3 ML VIAL SC PRN ×2 (12:47→20:31)
[2021-11-17] MEDS: Atorvastatin Calcium 40 MG TAB PO SCH (20:30)
[2021-11-18 04:56] LABS: #Eosinphils 0.4 10x3/uL (0.0-0.5); #Neutrophils 5.7 10x3/uL (1.5-8.4); %Basophils 0.4 % (0.0-2.0); %Lymphocytes 9.6 % (18.0-47.0); %Monocytes 12.5 % (0.0-10.0); %Neutrophils 71.6 % (40.0-75.0); Hemoglobin 7.2 g/dL (13.5-17.5); Mean Corpuscular HGB CONC 30.4 g/dL (32.0-36.0); Mean Corpuscular Hemoglobin 32.4 pg (27.0-33.0); Mean Corpuscular Volume 106.8 fl (81.2-95.1); Mean Platelet Volume 10.3 fl (7.4-10.4); Platelet Count 123 10x3/uL (150-450); RBC Distribution Width 16.8 % (11.5-14.5); Red Blood Cell (RBC) Count 2.22 10x6/uL (4.32-5.72); White Blood Cell (WBC) Count 7.9 10x3/uL (3.5-10.5)
[2021-11-18 05:01] LABS: Anion Gap 20 mmol/L (10-20); BUN (Urea Nitrogen) 125 mg/dL (8.4-25.7); Calc. Creatinine Clearance 26 mL/min (70-130); Calcium 8.5 mg/dL (7.8-10.44); Carbon Dioxide 33 mmol/L (23-31); Chloride 90 mmol/L (98-107); Glucose 94 mg/dL (83-110); Potassium 4.1 mmol/L (3.5-5.1); Sodium 139 mmol/L (136-145)
[2021-11-18 06:59] LABS: Large Platelets SLIGHT; Platelet Morphology Comment Appears Decreased
[2021-11-18 07:00] LABS: Anisocytosis SLIGHT = 6-15 cells (100X) (0-5/hpf); Howell Jolly Bodies SLIGHT = 1-2 cells (100X) (None Seen); Hypochromia SLIGHT = 6-15 cells (100X) (0-5/hpf); Macrocytosis SLIGHT = 6-15 cells (100X) (0-5/hpf); Microcytosis SLIGHT = 6-15 cells (100X) (0-5/hpf); Ovalocytes SLIGHT = 2-5 cells (100X) (0-1/hpf); Polychromasia SLIGHT = 2-3 cells (100X) (0-2/hpf)
[2021-11-18] MEDS ORDERED: Furosemide 100 MG/10 ML VIAL SLOW IVP SCH (09:00)
[2021-11-18] MEDS: hydrALAZINE 25 MG TAB PO SCH ×3 (09:48→20:02)
[2021-11-18] MEDS: Cholecalciferol 1,000 UNITS (25 MCG) TAB PO SCH (09:49)
[2021-11-18] MEDS: Folic Acid 1 MG TAB PO SCH (09:49)
[2021-11-18] MEDS: Clopidogrel Bisulfate 75 MG TAB PO SCH (09:49)
[2021-11-18] MEDS: Spironolactone 25 MG TAB PO SCH ×2 (09:50→20:01)
[2021-11-18] MEDS: Famotidine 20 MG TAB PO SCH (09:50)
[2021-11-18] MEDS: Carvedilol 25 MG TAB PO SCH ×2 (09:50→20:02)
[2021-11-18] MEDS: Amlodipine 10 MG TAB PO SCH (09:50)
[2021-11-18] MEDS: glipiZIDE 5 MG TAB PO SCH (09:50)
[2021-11-18] MEDS: Enoxaparin Sodium 30 MG/0.3 ML SYRINGE SC SCH (09:50)
[2021-11-18] MEDS: Pioglitazone HCl 45 MG TAB PO SCH (09:51)
[2021-11-18] MEDS: Atorvastatin Calcium 40 MG TAB PO SCH (20:02)
[2021-11-18] MEDS: HumaLOG 300 UNITS/3 ML VIAL SC PRN (22:00)
[2021-11-19 05:53] LABS: #Eosinphils 0.3 10x3/uL (0.0-0.5); #Monocytes 0.9 10x3/uL (0.0-1.1); %Basophils 0.4 % (0.0-2.0); %Eosinophils 4.8 % (0.0-6.0); %Lymphocytes 9.3 % (18.0-47.0); %Monocytes 12.6 % (0.0-10.0); %Neutrophils 71.6 % (40.0-75.0); Hemoglobin 8.1 g/dL (13.5-17.5); Mean Corpuscular HGB CONC 31.2 g/dL (32.0-36.0); Mean Corpuscular Hemoglobin 31.3 pg (27.0-33.0); Mean Corpuscular Volume 100.4 fl (81.2-95.1); Mean Platelet Volume 10.3 fl (7.4-10.4); Platelet Count 118 10x3/uL (150-450); RBC Distribution Width 20.7 % (11.5-14.5); Red Blood Cell (RBC) Count 2.59 10x6/uL (4.32-5.72); White Blood Cell (WBC) Count 6.9 10x3/uL (3.5-10.5)
[2021-11-19 06:00] LABS: Anion Gap 19 mmol/L (10-20); Calc. Creatinine Clearance 26 mL/min (70-130); Calcium 8.5 mg/dL (7.8-10.44); Carbon Dioxide 32 mmol/L (23-31); Chloride 90 mmol/L (98-107); Glucose 100 mg/dL (83-110); Potassium 3.9 mmol/L (3.5-5.1); Sodium 137 mmol/L (136-145)
[2021-11-19 06:10] LABS: BUN (Urea Nitrogen) 123 mg/dL (8.4-25.7)
[2021-11-19] MEDS: glipiZIDE 5 MG TAB PO SCH (08:54)
[2021-11-19] MEDS: Amlodipine 10 MG TAB PO SCH (08:56)
[2021-11-19] MEDS: Cholecalciferol 1,000 UNITS (25 MCG) TAB PO SCH (08:56)
[2021-11-19] MEDS: Carvedilol 25 MG TAB PO SCH ×2 (08:56→19:53)
[2021-11-19] MEDS: Clopidogrel Bisulfate 75 MG TAB PO SCH (08:56)
[2021-11-19] MEDS: Pioglitazone HCl 45 MG TAB PO SCH (08:57)
[2021-11-19] MEDS: Famotidine 20 MG TAB PO SCH (08:57)
[2021-11-19] MEDS: Folic Acid 1 MG TAB PO SCH (08:57)
[2021-11-19] MEDS: hydrALAZINE 25 MG TAB PO SCH ×3 (08:57→19:53)
[2021-11-19] MEDS: Spironolactone 25 MG TAB PO SCH ×2 (08:58→19:53)
[2021-11-19] MEDS ORDERED: Iron Sucrose Complex 200 MG in Sodium Chloride 0.9% 100 ML IVPB SCH (09:15)
[2021-11-19] MEDS ORDERED: Iron, Sodium Ferric Gluconate 250 MG in Sodium Chloride 0.9% 250 ML 250 ML IVPB SCH (10:00)
[2021-11-19] MEDS: Furosemide 40 MG/4 ML VIAL SLOW IVP SCH (10:07)
[2021-11-19] MEDS: HumaLOG 300 UNITS/3 ML VIAL SC PRN ×2 (17:49→21:45)
[2021-11-19] MEDS: Atorvastatin Calcium 40 MG TAB PO SCH (19:53)
[2021-11-20 04:56] LABS: #Eosinphils 0.2 10x3/uL (0.0-0.5); #Monocytes 0.9 10x3/uL (0.0-1.1); #Neutrophils 5.5 10x3/uL (1.5-8.4); %Basophils 0.5 % (0.0-2.0); %Eosinophils 2.8 % (0.0-6.0); %Lymphocytes 8.6 % (18.0-47.0); %Monocytes 12.2 % (0.0-10.0); %Neutrophils 73.6 % (40.0-75.0); Mean Corpuscular Hemoglobin 31.3 pg (27.0-33.0); Mean Corpuscular Volume 100.8 fl (81.2-95.1); Mean Platelet Volume 10.1 fl (7.4-10.4); Platelet Count 129 10x3/uL (150-450); RBC Distribution Width 20.2 % (11.5-14.5); Red Blood Cell (RBC) Count 2.56 10x6/uL (4.32-5.72); White Blood Cell (WBC) Count 7.4 10x3/uL (3.5-10.5)
[2021-11-20 05:18] LABS: Anion Gap 20 mmol/L (10-20); Calc. Creatinine Clearance 25 mL/min (70-130); Calcium 8.6 mg/dL (7.8-10.44); Carbon Dioxide 31 mmol/L (23-31); Chloride 91 mmol/L (98-107); Glucose 104 mg/dL (83-110); Sodium 138 mmol/L (136-145)
[2021-11-20 05:28] LABS: BUN (Urea Nitrogen) 125 mg/dL (8.4-25.7)
[2021-11-20] MEDS: glipiZIDE 5 MG TAB PO SCH (08:24)
[2021-11-20] MEDS: Amlodipine 10 MG TAB PO SCH (08:25)
[2021-11-20] MEDS: Cholecalciferol 1,000 UNITS (25 MCG) TAB PO SCH (08:26)
[2021-11-20] MEDS: Carvedilol 25 MG TAB PO SCH ×2 (08:26→20:36)
[2021-11-20] MEDS: Famotidine 20 MG TAB PO SCH (08:27)
[2021-11-20] MEDS: Folic Acid 1 MG TAB PO SCH (08:27)
[2021-11-20] MEDS: Furosemide 40 MG/4 ML VIAL SLOW IVP SCH (08:27)
[2021-11-20] MEDS: Clopidogrel Bisulfate 75 MG TAB PO SCH (08:27)
[2021-11-20] MEDS: hydrALAZINE 25 MG TAB PO SCH ×3 (08:27→20:36)
[2021-11-20] MEDS: Pioglitazone HCl 45 MG TAB PO SCH (08:28)
[2021-11-20] MEDS: Spironolactone 25 MG TAB PO SCH ×2 (08:28→20:36)
[2021-11-20] MEDS: HumaLOG 300 UNITS/3 ML VIAL SC PRN ×2 (11:30→17:48)
[2021-11-20] MEDS: Atorvastatin Calcium 40 MG TAB PO SCH (20:36)
[2021-11-21 04:14] LABS: #Basophils 0.1 10x3/uL (0.0-0.2); #Eosinphils 0.3 10x3/uL (0.0-0.5); #Monocytes 1.1 10x3/uL (0.0-1.1); #Neutrophils 5.8 10x3/uL (1.5-8.4); %Basophils 0.6 % (0.0-2.0); %Eosinophils 3.5 % (0.0-6.0); %Monocytes 13.1 % (0.0-10.0); %Neutrophils 70.9 % (40.0-75.0); Mean Corpuscular HGB CONC 31.3 g/dL (32.0-36.0); Mean Corpuscular Hemoglobin 31.3 pg (27.0-33.0); Mean Platelet Volume 10.5 fl (7.4-10.4); Platelet Count 137 10x3/uL (150-450); RBC Distribution Width 19.9 % (11.5-14.5); Red Blood Cell (RBC) Count 2.56 10x6/uL (4.32-5.72); White Blood Cell (WBC) Count 8.2 10x3/uL (3.5-10.5)
[2021-11-21 04:33] LABS: Anion Gap 18 mmol/L (10-20); Calc. Creatinine Clearance 24 mL/min (70-130); Calcium 8.5 mg/dL (7.8-10.44); Carbon Dioxide 31 mmol/L (23-31); Chloride 91 mmol/L (98-107); Glucose 102 mg/dL (83-110); Potassium 4.1 mmol/L (3.5-5.1); Sodium 136 mmol/L (136-145)
[2021-11-21 04:43] LABS: BUN (Urea Nitrogen) 132 mg/dL (8.4-25.7)
[2021-11-21] MEDS: Carvedilol 25 MG TAB PO SCH (05:52)
[2021-11-21] MEDS ORDERED: PROPOFOL 20 ML ONE (07:52)
[2021-11-21] MEDS ORDERED: Ketamine 50 MG/ML (10ML VIAL) ONE (08:09)
[2021-11-21] MEDS ORDERED: Furosemide 40 MG/4 ML VIAL SLOW IVP SCH (09:00)
[2021-11-21] MEDS ORDERED: hydrALAZINE 25 MG TAB PO SCH (09:00)
[2021-11-21] MEDS: Famotidine 20 MG TAB PO SCH (09:50)
[2021-11-21] MEDS: Cholecalciferol 1,000 UNITS (25 MCG) TAB PO SCH (09:50)
[2021-11-21] MEDS: glipiZIDE 5 MG TAB PO SCH (09:50)
[2021-11-21] MEDS: Folic Acid 1 MG TAB PO SCH (09:50)
[2021-11-21] MEDS: Spironolactone 25 MG TAB PO SCH (09:51)
[2021-11-21] MEDS: HumaLOG 300 UNITS/3 ML VIAL SC PRN (11:32)
[2021-11-21 11:45] VITALS: BP 136/64; TEMP 97.9
== END 2021-11-21 16:29 | disposition home or self-care (01) | DRG 291 ==
LOC: CSHERS 15:15 → CSHTELE 18:10
PROVIDERS: ADMIT Internal Medicine; ATTEND Internal Medicine
PROC: 30233N1 Transfusion of Nonautologous Red Blood Cells into Peripheral Vein, Percutaneous Approach (ICD-10-PCS; principal; 2021-11-18)
PROC: 0W3P8ZZ Control Bleeding in Gastrointestinal Tract, Via Natural or Artificial Opening Endoscopic (ICD-10-PCS; 2021-11-21)
DX: I13.0 Hypertensive heart and chronic kidney disease with heart failure and stage 1 through stage 4 chronic kidney disease, or unspecified chronic kidney disease (principal); I50.43 Acute on chronic combined systolic (congestive) and diastolic (congestive) heart failure; J96.01 Acute respiratory failure with hypoxia; K31.811 Angiodysplasia of stomach and duodenum with bleeding; N18.4 Chronic kidney disease, stage 4 (severe); N17.9 Acute kidney failure, unspecified; Z20.822 Contact with and (suspected) exposure to COVID-19; I25.10 Atherosclerotic heart disease of native coronary artery without angina pectoris; E11.22 Type 2 diabetes mellitus with diabetic chronic kidney disease; R94.31 Abnormal electrocardiogram [ECG] [EKG]; I65.29 Occlusion and stenosis of unspecified carotid artery; E11.51 Type 2 diabetes mellitus with diabetic peripheral angiopathy without gangrene; G47.33 Obstructive sleep apnea (adult) (pediatric); D63.1 Anemia in chronic kidney disease; E11.65 Type 2 diabetes mellitus with hyperglycemia; E87.6 Hypokalemia; Z79.899 Other long term (current) drug therapy; Z95.1 Presence of aortocoronary bypass graft; Z95.2 Presence of prosthetic heart valve; Z95.5 Presence of coronary angioplasty implant and graft; Z98.890 Other specified postprocedural states; Z87.891 Personal history of nicotine dependence
CPT/HCPCS: 36415; 36416; 36430; 71045; 80048; 80053; 80069; 81003; 82274; 82553; 82728; 83010; 83540; 83550; 83735; 83880; 84484; 85025; 85046; 86850; 86900; 86901; 93005; 93010; 93306; 94760; 96374; 97139; J1650; J1815; J1940; J2704; J2916; J7050; P9016; U0002

== ENCOUNTER 2022-08-23 11:30 | Inpatient (IN) | payer MEDICARE ==
[2022-08-23 12:30] LABS: #Basophils 0.1 10x3/uL (0.0-0.2); #Eosinphils 0.4 10x3/uL (0.0-0.5); #Monocytes 1.3 10x3/uL (0.0-1.1); #Neutrophils 12.4 10x3/uL (1.5-8.4); %Basophils 0.5 % (0.0-2.0); %Eosinophils 2.6 % (0.0-6.0); %Lymphocytes 7.7 % (18.0-47.0); %Monocytes 8.2 % (0.0-10.0); %Neutrophils 79.9 % (40.0-75.0); Hemoglobin 8.7 g/dL (13.5-17.5); Mean Corpuscular Hemoglobin 30.3 pg (27.0-33.0); Mean Platelet Volume 9.7 fl (7.4-10.4); Platelet Count 234 10x3/uL (150-450); RBC Distribution Width 16.1 % (11.5-14.5); Red Blood Cell (RBC) Count 2.87 10x6/uL (4.32-5.72); White Blood Cell (WBC) Count 15.5 10x3/uL (3.5-10.5)
[2022-08-23 12:38] LABS: ALT (SGPT) 10 U/L (8-55); AST (SGOT) 9 U/L (5-34); Albumin 3.5 g/dL (3.4-4.8); Alkaline Phosphatase 117 U/L (40-110); Anion Gap 18 mmol/L (10-20); BUN (Urea Nitrogen) 81 mg/dL (8.4-25.7); Bilirubin, Total 0.7 mg/dL (0.2-1.2); Calc. Creatinine Clearance 0 mL/min (70-130); Calcium 7.9 mg/dL (7.8-10.44); Carbon Dioxide 27 mmol/L (23-31); Chloride 93 mmol/L (98-107); Estimated GFR 13; Globulin 3.1 g/dL (2.4-3.5); Glucose 249 mg/dL (83-110); Potassium 3.2 mmol/L (3.5-5.1); Protein, Total 6.6 g/dL (5.8-8.1); Sodium 135 mmol/L (136-145)
[2022-08-23 13:01] LABS: CKMB 0.9 ng/mL (0-6.6)
[2022-08-23] MEDS ORDERED: Pantoprazole 80 MG, Admixture Fee 1 EACH in Sodium Chloride 0.9% 100 ML IVPB SCH (13:30)
[2022-08-23 14:17] LABS: PTT 25.9 sec (22.0-33.0); Prothrombin Time 10.5 sec (9.5-12.1)
[2022-08-23 14:36] LABS: Troponin I 0.096 ng/mL (< 0.028)
[2022-08-23 15:04] LABS: SARS-CoV-2 NAA Rapid Test Not Detected (NotDetected)
[2022-08-23] MEDS ORDERED: Acetaminophen 650 MG Suppository PR PRN (15:27)
[2022-08-23] MEDS ORDERED: Acetaminophen 325 MG TAB PO PRN (15:27)
[2022-08-23] MEDS ORDERED: Ondansetron PF 4 MG/2 ML Vial IVP PRN (15:27)
[2022-08-23] MEDS ORDERED: Ondansetron ODT 4 MG TAB PO PRN (15:27)
[2022-08-23] MEDS ORDERED: cefTRIAXone\\ROCEPHIN 1 GM VIAL ONE (15:28)
[2022-08-23] MEDS ORDERED: Insulin Regular 300 UNITS/3 ML VIAL SC PRN (15:46)
[2022-08-23] MEDS ORDERED: Dextrose 50% Abboject 50 ML SYRINGE SLOW IVP PRN (15:46)
[2022-08-23] MEDS ORDERED: Dextrose 5% in Water 1,000 ML IV PRN (15:46)
[2022-08-23] MEDS ORDERED: Azithromycin 500 MG VIAL ONE (16:13)
[2022-08-23 19:05] LABS: Troponin I 0.095 ng/mL (< 0.028)
[2022-08-23] MEDS ORDERED: Potassium Chloride 10 MEQ in Premix Bag 1 BAG IVPB SCH (22:00)
[2022-08-23 22:30] LABS: Hemoglobin 9.5 g/dL (13.5-17.5)
[2022-08-23] MEDS: Pantoprazole 40 MG VIAL IVP SCH (22:43)
[2022-08-23 23:09] VITALS: BMI 35.4
[2022-08-24 04:27] LABS: #Basophils 0.1 10x3/uL (0.0-0.2); #Eosinphils 0.6 10x3/uL (0.0-0.5); #Monocytes 1.4 10x3/uL (0.0-1.1); #Neutrophils 11.1 10x3/uL (1.5-8.4); %Basophils 0.5 % (0.0-2.0); %Eosinophils 4.2 % (0.0-6.0); %Monocytes 9.4 % (0.0-10.0); %Neutrophils 75.9 % (40.0-75.0); Hemoglobin 9.2 g/dL (13.5-17.5); Mean Corpuscular HGB CONC 33.3 g/dL (32.0-36.0); Mean Corpuscular Hemoglobin 30.4 pg (27.0-33.0); Mean Corpuscular Volume 91.1 fl (81.2-95.1); Mean Platelet Volume 9.1 fl (7.4-10.4); Platelet Count 209 10x3/uL (150-450); RBC Distribution Width 16.3 % (11.5-14.5); Red Blood Cell (RBC) Count 3.03 10x6/uL (4.32-5.72); White Blood Cell (WBC) Count 14.6 10x3/uL (3.5-10.5)
[2022-08-24 04:43] LABS: Anion Gap 19 mmol/L (10-20); BUN (Urea Nitrogen) 77 mg/dL (8.4-25.7); Calc. Creatinine Clearance 23 mL/min (70-130); Calcium 8.2 mg/dL (7.8-10.44); Carbon Dioxide 26 mmol/L (23-31); Chloride 95 mmol/L (98-107); Estimated GFR 16; Glucose 167 mg/dL (83-110); Sodium 137 mmol/L (136-145)
[2022-08-24] MEDS: Amlodipine 5 MG TAB PO SCH (08:29)
[2022-08-24] MEDS: hydrALAZINE 25 MG TAB PO SCH ×3 (08:29→21:36)
[2022-08-24] MEDS: Pantoprazole 40 MG VIAL IVP SCH ×2 (08:29→21:36)
[2022-08-24] MEDS: Labetalol HCl 100 MG/20 ML VIAL SLOW IVP PRN (09:23)
[2022-08-24] MEDS ORDERED: PROPOFOL 40 ML ONE (10:57)
[2022-08-24] MEDS ORDERED: Fentanyl 100 MCG/2 ML VIAL ONE (10:57)
[2022-08-24 13:36] LABS: Hemoglobin 9.8 g/dL (13.5-17.5)
[2022-08-24] MEDS ORDERED: Potassium Chloride 20 MEQ TAB PO SCH (16:00)
[2022-08-24] MEDS ORDERED: cefTRIAXone\\ROCEPHIN 1 GM in Sodium Chloride 0.9% 100 ML IVPB SCH (16:00)
[2022-08-24] MEDS ORDERED: Azithromycin 500 MG in Sodium Chloride 0.9% 250 ML 250 ML IVPB SCH (16:00)
[2022-08-24] MEDS: Insulin Regular 300 UNITS/3 ML VIAL SC PRN (17:20)
[2022-08-24 20:15] LABS: Hemoglobin 9.2 g/dL (13.5-17.5)
[2022-08-25 05:01] LABS: Anion Gap 17 mmol/L (10-20); BUN (Urea Nitrogen) 70 mg/dL (8.4-25.7); Calc. Creatinine Clearance 30 mL/min (70-130); Calcium 8.2 mg/dL (7.8-10.44); Carbon Dioxide 26 mmol/L (23-31); Chloride 97 mmol/L (98-107); Estimated GFR 22; Glucose 194 mg/dL (83-110); Potassium 3.2 mmol/L (3.5-5.1); Sodium 137 mmol/L (136-145)
[2022-08-25 05:08] LABS: #Basophils 0.1 10x3/uL (0.0-0.2); #Eosinphils 0.5 10x3/uL (0.0-0.5); #Monocytes 1.5 10x3/uL (0.0-1.1); #Neutrophils 9.3 10x3/uL (1.5-8.4); %Basophils 0.5 % (0.0-2.0); %Eosinophils 4.2 % (0.0-6.0); %Lymphocytes 8.7 % (18.0-47.0); %Monocytes 11.5 % (0.0-10.0); %Neutrophils 73.9 % (40.0-75.0); Hemoglobin 8.5 g/dL (13.5-17.5); Mean Corpuscular HGB CONC 32.2 g/dL (32.0-36.0); Mean Corpuscular Hemoglobin 29.7 pg (27.0-33.0); Mean Corpuscular Volume 92.3 fl (81.2-95.1); Mean Platelet Volume 9.4 fl (7.4-10.4); Platelet Count 187 10x3/uL (150-450); RBC Distribution Width 15.9 % (11.5-14.5); Red Blood Cell (RBC) Count 2.86 10x6/uL (4.32-5.72); White Blood Cell (WBC) Count 12.6 10x3/uL (3.5-10.5)
[2022-08-25] MEDS: hydrALAZINE 25 MG TAB PO SCH ×3 (08:27→21:12)
[2022-08-25] MEDS: Amlodipine 5 MG TAB PO SCH (08:28)
[2022-08-25] MEDS: Pantoprazole 40 MG VIAL IVP SCH ×2 (08:28→21:12)
[2022-08-25] MEDS ORDERED: Potassium Chloride 20 MEQ TAB PO SCH (09:00)
[2022-08-25] MEDS ORDERED: Aspirin 81 mg Enteric Coated Tablet PO SCH (09:00)
[2022-08-25] MEDS: Insulin Regular 300 UNITS/3 ML VIAL SC PRN ×2 (12:47→17:48)
[2022-08-25] MEDS: Labetalol HCl 100 MG/20 ML VIAL SLOW IVP PRN ×2 (12:48→17:48)
[2022-08-25] MEDS ORDERED: Spironolactone 25 MG TAB PO SCH (17:30)
[2022-08-25] MEDS ORDERED: Carvedilol 25 MG TAB PO SCH (17:30)
[2022-08-25] MEDS: Carvedilol 25 MG TAB PO SCH (21:12)
[2022-08-26 06:02] LABS: #Eosinphils 0.7 10x3/uL (0.0-0.5); #Monocytes 1.5 10x3/uL (0.0-1.1); #Neutrophils 9.6 10x3/uL (1.5-8.4); %Basophils 0.3 % (0.0-2.0); %Eosinophils 5.2 % (0.0-6.0); %Monocytes 11.3 % (0.0-10.0); %Neutrophils 73.9 % (40.0-75.0); Hemoglobin 8.3 g/dL (13.5-17.5); Mean Corpuscular HGB CONC 32.4 g/dL (32.0-36.0); Mean Corpuscular Hemoglobin 29.6 pg (27.0-33.0); Mean Corpuscular Volume 91.4 fl (81.2-95.1); Mean Platelet Volume 9.7 fl (7.4-10.4); Platelet Count 202 10x3/uL (150-450); RBC Distribution Width 15.8 % (11.5-14.5)
[2022-08-26 06:07] LABS: Anion Gap 17 mmol/L (10-20); BUN (Urea Nitrogen) 65 mg/dL (8.4-25.7); Calc. Creatinine Clearance 30 mL/min (70-130); Calcium 8.5 mg/dL (7.8-10.44); Carbon Dioxide 27 mmol/L (23-31); Chloride 98 mmol/L (98-107); Estimated GFR 21; Glucose 162 mg/dL (83-110); Potassium 3.6 mmol/L (3.5-5.1); Sodium 138 mmol/L (136-145)
[2022-08-26] MEDS: Pantoprazole 40 MG VIAL IVP SCH ×2 (10:10→20:09)
[2022-08-26] MEDS: Spironolactone 25 MG TAB PO SCH (10:11)
[2022-08-26] MEDS: hydrALAZINE 25 MG TAB PO SCH ×3 (10:11→20:10)
[2022-08-26] MEDS: Aspirin 81 mg Enteric Coated Tablet PO SCH ×2 (10:11→10:13)
[2022-08-26] MEDS: Carvedilol 25 MG TAB PO SCH ×2 (10:11→20:10)
[2022-08-26] MEDS: Torsemide 100 MG TAB PO SCH ×2 (10:12→14:32)
[2022-08-26] MEDS: Amlodipine 5 MG TAB PO SCH (10:12)
[2022-08-27 05:17] LABS: #Eosinphils 0.8 10x3/uL (0.0-0.5); #Monocytes 1.2 10x3/uL (0.0-1.1); #Neutrophils 9.3 10x3/uL (1.5-8.4); %Basophils 0.3 % (0.0-2.0); %Eosinophils 6.4 % (0.0-6.0); %Lymphocytes 8.3 % (18.0-47.0); %Monocytes 9.7 % (0.0-10.0); %Neutrophils 74.2 % (40.0-75.0); Hemoglobin 9.5 g/dL (13.5-17.5); Mean Corpuscular HGB CONC 32.9 g/dL (32.0-36.0); Mean Corpuscular Volume 91.2 fl (81.2-95.1); Mean Platelet Volume 9.7 fl (7.4-10.4); Platelet Count 200 10x3/uL (150-450); RBC Distribution Width 16.3 % (11.5-14.5); Red Blood Cell (RBC) Count 3.17 10x6/uL (4.32-5.72); White Blood Cell (WBC) Count 12.6 10x3/uL (3.5-10.5)
[2022-08-27 05:21] LABS: Anion Gap 17 mmol/L (10-20); BUN (Urea Nitrogen) 63 mg/dL (8.4-25.7); Calc. Creatinine Clearance 29 mL/min (70-130); Calcium 8.5 mg/dL (7.8-10.44); Carbon Dioxide 27 mmol/L (23-31); Chloride 98 mmol/L (98-107); Estimated GFR 21; Glucose 178 mg/dL (83-110); Potassium 3.6 mmol/L (3.5-5.1); Sodium 138 mmol/L (136-145)
[2022-08-27] MEDS: hydrALAZINE 25 MG TAB PO SCH ×2 (08:55→15:08)
[2022-08-27] MEDS: Amlodipine 5 MG TAB PO SCH (08:55)
[2022-08-27] MEDS: Pantoprazole 40 MG VIAL IVP SCH (08:55)
[2022-08-27] MEDS: Spironolactone 25 MG TAB PO SCH (08:55)
[2022-08-27] MEDS: Carvedilol 25 MG TAB PO SCH (08:56)
[2022-08-27] MEDS: Aspirin 81 mg Enteric Coated Tablet PO SCH (10:44)
[2022-08-27] MEDS: Torsemide 100 MG TAB PO SCH ×2 (10:45→14:02)
[2022-08-27] MEDS ORDERED: EPOETIN ALFA-EPBX (ESRD) 10,000 UNIT/ML VIAL SC SCH (12:15)
[2022-08-27 12:40] VITALS: BP 145/62; TEMP 97.7
== END 2022-08-27 15:15 | disposition home or self-care (01) | DRG 377 ==
LOC: CSHERS 11:30 → CSHTELE 21:31
PROVIDERS: ADMIT Internal Medicine; ATTEND Internal Medicine
PROC: 30233N1 Transfusion of Nonautologous Red Blood Cells into Peripheral Vein, Percutaneous Approach (ICD-10-PCS; 2022-08-23)
PROC: 5A09357 Assistance with Respiratory Ventilation, Less than 24 Consecutive Hours, Continuous Positive Airway Pressure (ICD-10-PCS; 2022-08-23)
PROC: 3E1M39Z Irrigation of Peritoneal Cavity using Dialysate, Percutaneous Approach (ICD-10-PCS; 2022-08-23)
PROC: 0DJ08ZZ Inspection of Upper Intestinal Tract, Via Natural or Artificial Opening Endoscopic (ICD-10-PCS; principal; 2022-08-24)
DX: K92.2 Gastrointestinal hemorrhage, unspecified (principal); N18.6 End stage renal disease; D62 Acute posthemorrhagic anemia; E11.22 Type 2 diabetes mellitus with diabetic chronic kidney disease; I50.9 Heart failure, unspecified; I25.10 Atherosclerotic heart disease of native coronary artery without angina pectoris; G47.33 Obstructive sleep apnea (adult) (pediatric); D72.829 Elevated white blood cell count, unspecified; D63.1 Anemia in chronic kidney disease; E87.6 Hypokalemia; K21.9 Gastro-esophageal reflux disease without esophagitis; G43.909 Migraine, unspecified, not intractable, without status migrainosus; Z20.822 Contact with and (suspected) exposure to COVID-19; T39.015A Adverse effect of aspirin, initial encounter; T45.525A Adverse effect of antithrombotic drugs, initial encounter; Z99.2 Dependence on renal dialysis; Z86.73 Personal history of transient ischemic attack (TIA), and cerebral infarction without residual deficits; Z79.82 Long term (current) use of aspirin; Z79.899 Other long term (current) drug therapy; Z98.890 Other specified postprocedural states; Z87.891 Personal history of nicotine dependence; Z95.1 Presence of aortocoronary bypass graft
CPT/HCPCS: 36415; 36416; 36430; 71045; 80048; 80053; 82553; 83880; 84145; 84484; 85025; 85610; 85730; 86850; 86900; 86901; 87040; 90945; 93005; 94760; 96365; 96366; 96368; C9113; G0257; J0456; J0696; J1815; J2704; J3010; J3480; J3490; J7050; P9016; Q5105

== ENCOUNTER 2022-09-11 12:22 | Inpatient (IN) | payer MEDICARE ==
[2022-09-11 13:34] LABS: #Basophils 0.1 10x3/uL (0.0-0.2); #Eosinphils 0.4 10x3/uL (0.0-0.5); #Monocytes 1.4 10x3/uL (0.0-1.1); #Neutrophils 10.1 10x3/uL (1.5-8.4); %Basophils 0.5 % (0.0-2.0); %Eosinophils 3.4 % (0.0-6.0); %Monocytes 10.4 % (0.0-10.0); %Neutrophils 77.1 % (40.0-75.0); Hemoglobin 8.6 g/dL (13.5-17.5); Mean Corpuscular HGB CONC 30.8 g/dL (32.0-36.0); Mean Corpuscular Hemoglobin 28.9 pg (27.0-33.0); Mean Corpuscular Volume 93.6 fl (81.2-95.1); Mean Platelet Volume 8.9 fl (7.4-10.4); Platelet Count 203 10x3/uL (150-450); RBC Distribution Width 15.7 % (11.5-14.5); Red Blood Cell (RBC) Count 2.98 10x6/uL (4.32-5.72); White Blood Cell (WBC) Count 13.1 10x3/uL (3.5-10.5)
[2022-09-11 13:46] LABS: PTT 26.2 sec (22.0-33.0); Prothrombin Time 10.6 sec (9.5-12.1)
[2022-09-11 13:50] LABS: ALT (SGPT) 7 U/L (8-55); AST (SGOT) 11 U/L (5-34); Albumin 3.6 g/dL (3.4-4.8); Alkaline Phosphatase 114 U/L (40-110); Anion Gap 16 mmol/L (10-20); BUN (Urea Nitrogen) 75 mg/dL (8.4-25.7); Bilirubin, Total 0.6 mg/dL (0.2-1.2); Calc. Creatinine Clearance 0 mL/min (70-130); Calcium 7.9 mg/dL (7.8-10.44); Carbon Dioxide 28 mmol/L (23-31); Chloride 94 mmol/L (98-107); Estimated GFR 9; Globulin 2.9 g/dL (2.4-3.5); Glucose 165 mg/dL (83-110); Potassium 4.3 mmol/L (3.5-5.1); Protein, Total 6.5 g/dL (5.8-8.1); Sodium 134 mmol/L (136-145)
[2022-09-11] MEDS ORDERED: Furosemide 100 MG/10 ML VIAL ONE (13:58)
[2022-09-11 14:10] LABS: CKMB 1.4 ng/mL (0-6.6)
[2022-09-11] MEDS ORDERED: hydrOXYzine 25 MG TAB PO PRN (15:19)
[2022-09-11] MEDS ORDERED: Acetaminophen 325 MG TAB PO PRN (15:29)
[2022-09-11] MEDS ORDERED: Ondansetron ODT 4 MG TAB PO PRN (15:29)
[2022-09-11] MEDS ORDERED: Senokot S 8.6-50 MG TAB PO PRN (15:29)
[2022-09-11] MEDS ORDERED: Ondansetron PF 4 MG/2 ML Vial IVP PRN (15:29)
[2022-09-11] MEDS ORDERED: Nitroglycerin 2% Ointment 1 INCH/1 GM Packet ONE (15:31)
[2022-09-11] MEDS ORDERED: Furosemide 100 MG/10 ML VIAL SLOW IVP SCH ×2 (15:56→21:15)
[2022-09-11 16:49] LABS: Troponin I 0.061 ng/mL (< 0.028)
[2022-09-11] MEDS ORDERED: FLU VACC QS2022-23(65YR UP)/PF 240 MCG/0.7 ML SYRINGE IM ONE (17:30)
[2022-09-11 19:13] LABS: SARS-CoV-2 NAA Rapid Test Not Detected (NotDetected)
[2022-09-11 19:29] LABS: Troponin I 0.066 ng/mL (< 0.028)
[2022-09-11] MEDS: hydrALAZINE 25 MG TAB PO SCH (20:59)
[2022-09-11] MEDS: Doxycycline 100 MG CAP PO SCH (20:59)
[2022-09-11] MEDS: Carvedilol 25 MG TAB PO SCH (21:00)
[2022-09-11] MEDS: Melatonin 3 MG TAB PO SCH (21:00)
[2022-09-11] MEDS ORDERED: Torsemide 100 MG TAB PO SCH (21:00)
[2022-09-11] MEDS: NIFEdipine XL 60 MG TAB PO SCH (21:00)
[2022-09-11] MEDS: Nitroglycerin 2% Ointment 1 INCH/1 GM Packet TOP SCH (21:01)
[2022-09-11 21:33] LABS: Anion Gap 19 mmol/L (10-20); BUN (Urea Nitrogen) 76 mg/dL (8.4-25.7); Calc. Creatinine Clearance 14 mL/min (70-130); Calcium 7.9 mg/dL (7.8-10.44); Carbon Dioxide 26 mmol/L (23-31); Chloride 97 mmol/L (98-107); Estimated GFR 9; Glucose 86 mg/dL (83-110); Magnesium 2.8 mg/dL (1.6-2.6); Potassium 4.5 mmol/L (3.5-5.1); Sodium 137 mmol/L (136-145)
[2022-09-11] MEDS: traZODone HCl 50 MG TAB PO SCH (22:08)
[2022-09-12] MEDS ORDERED: hydrALAZINE 20 MG/ML VIAL SLOW IVP SCH ×2 (02:15→03:30)
[2022-09-12 03:31] LABS: #Basophils 0.1 10x3/uL (0.0-0.2); #Eosinphils 0.5 10x3/uL (0.0-0.5); #Monocytes 1.3 10x3/uL (0.0-1.1); #Neutrophils 8.1 10x3/uL (1.5-8.4); %Basophils 0.5 % (0.0-2.0); %Eosinophils 4.4 % (0.0-6.0); %Lymphocytes 7.7 % (18.0-47.0); %Monocytes 11.7 % (0.0-10.0); %Neutrophils 74.4 % (40.0-75.0); Hemoglobin 8.4 g/dL (13.5-17.5); Mean Corpuscular HGB CONC 30.9 g/dL (32.0-36.0); Mean Corpuscular Hemoglobin 28.8 pg (27.0-33.0); Mean Corpuscular Volume 93.2 fl (81.2-95.1); Mean Platelet Volume 8.9 fl (7.4-10.4); Platelet Count 189 10x3/uL (150-450); RBC Distribution Width 15.6 % (11.5-14.5); Red Blood Cell (RBC) Count 2.92 10x6/uL (4.32-5.72); White Blood Cell (WBC) Count 10.9 10x3/uL (3.5-10.5)
[2022-09-12 03:44] LABS: Anion Gap 18 mmol/L (10-20); BUN (Urea Nitrogen) 72 mg/dL (8.4-25.7); Calc. Creatinine Clearance 14 mL/min (70-130); Calcium 8.3 mg/dL (7.8-10.44); Carbon Dioxide 26 mmol/L (23-31); Chloride 96 mmol/L (98-107); Estimated GFR 10; Glucose 249 mg/dL (83-110); Potassium 3.7 mmol/L (3.5-5.1); Sodium 136 mmol/L (136-145)
[2022-09-12] MEDS: Nitroglycerin 2% Ointment 1 INCH/1 GM Packet TOP SCH ×3 (06:25→22:06)
[2022-09-12] MEDS: Furosemide 40 MG/4 ML VIAL SLOW IVP SCH ×2 (06:25→13:58)
[2022-09-12 06:53] VITALS: BMI 36.9
[2022-09-12] MEDS: Alogliptin 25 MG TAB PO SCH (08:09)
[2022-09-12] MEDS: Carvedilol 25 MG TAB PO SCH ×2 (08:09→22:05)
[2022-09-12] MEDS: Ascorbic Acid 500 mg Chewable Tablet PO SCH (08:09)
[2022-09-12] MEDS: NIFEdipine XL 60 MG TAB PO SCH (08:09)
[2022-09-12] MEDS: hydrALAZINE 25 MG TAB PO SCH ×3 (08:09→22:05)
[2022-09-12] MEDS: Atorvastatin Calcium 40 MG TAB PO SCH (08:10)
[2022-09-12] MEDS: Amlodipine 10 MG TAB PO SCH (08:10)
[2022-09-12] MEDS: glipiZIDE 5 MG TAB PO SCH (08:10)
[2022-09-12] MEDS: Doxycycline 100 MG CAP PO SCH ×2 (08:10→22:05)
[2022-09-12] MEDS: Spironolactone 25 MG TAB PO SCH (08:10)
[2022-09-12] MEDS ORDERED: NIFEdipine XL 60 MG TAB PO SCH (12:00)
[2022-09-12] MEDS ORDERED: EPOETIN ALFA-EPBX (ESRD) 4,000 UNIT/ML VIAL SC SCH (12:30)
[2022-09-12] MEDS ORDERED: EPOETIN ALFA-EPBX (ESRD) 10,000 UNIT/ML VIAL SC SCH (13:00)
[2022-09-12] MEDS: Melatonin 3 MG TAB PO SCH (22:05)
[2022-09-12] MEDS: traZODone HCl 50 MG TAB PO SCH (22:05)
[2022-09-13 04:42] LABS: #Basophils 0.1 10x3/uL (0.0-0.2); #Eosinphils 0.6 10x3/uL (0.0-0.5); #Monocytes 1.5 10x3/uL (0.0-1.1); #Neutrophils 7.9 10x3/uL (1.5-8.4); %Basophils 0.5 % (0.0-2.0); %Eosinophils 5.3 % (0.0-6.0); %Lymphocytes 7.4 % (18.0-47.0); %Monocytes 13.4 % (0.0-10.0); %Neutrophils 72.2 % (40.0-75.0); Hemoglobin 8.2 g/dL (13.5-17.5); Mean Corpuscular HGB CONC 31.1 g/dL (32.0-36.0); Mean Corpuscular Hemoglobin 29.1 pg (27.0-33.0); Mean Corpuscular Volume 93.6 fl (81.2-95.1); Mean Platelet Volume 9.1 fl (7.4-10.4); Platelet Count 185 10x3/uL (150-450); RBC Distribution Width 15.5 % (11.5-14.5); Red Blood Cell (RBC) Count 2.82 10x6/uL (4.32-5.72)
[2022-09-13 04:53] LABS: Anion Gap 17 mmol/L (10-20); BUN (Urea Nitrogen) 71 mg/dL (8.4-25.7); Calc. Creatinine Clearance 16 mL/min (70-130); Calcium 8.3 mg/dL (7.8-10.44); Carbon Dioxide 27 mmol/L (23-31); Chloride 96 mmol/L (98-107); Estimated GFR 10; Glucose 133 mg/dL (83-110); Potassium 3.9 mmol/L (3.5-5.1); Sodium 136 mmol/L (136-145)
[2022-09-13] MEDS: Furosemide 40 MG/4 ML VIAL SLOW IVP SCH ×2 (06:18→17:04)
[2022-09-13] MEDS: Nitroglycerin 2% Ointment 1 INCH/1 GM Packet TOP SCH (06:19)
[2022-09-13] MEDS: glipiZIDE 5 MG TAB PO SCH (08:37)
[2022-09-13] MEDS: Amlodipine 10 MG TAB PO SCH (08:37)
[2022-09-13] MEDS: Atorvastatin Calcium 40 MG TAB PO SCH (08:37)
[2022-09-13] MEDS: Spironolactone 25 MG TAB PO SCH (08:37)
[2022-09-13] MEDS: Carvedilol 25 MG TAB PO SCH ×2 (08:38→21:15)
[2022-09-13] MEDS: hydrALAZINE 25 MG TAB PO SCH ×3 (08:38→21:14)
[2022-09-13] MEDS: Ascorbic Acid 500 mg Chewable Tablet PO SCH (08:38)
[2022-09-13] MEDS: Alogliptin 25 MG TAB PO SCH (08:38)
[2022-09-13] MEDS: Doxycycline 100 MG CAP PO SCH ×2 (09:00→17:03)
[2022-09-13] MEDS ORDERED: Dextrose 5% in Water 1,000 ML IV PRN (11:58)
[2022-09-13] MEDS ORDERED: Dextrose 50% Abboject 50 ML SYRINGE SLOW IVP PRN (11:58)
[2022-09-13] MEDS ORDERED: Insulin Regular 300 UNITS/3 ML VIAL SC PRN ×2 (11:58)
[2022-09-13] MEDS ORDERED: Folic Acid/Vit B Comp W-C PO SCH (12:15)
[2022-09-13] MEDS: Melatonin 3 MG TAB PO SCH (21:14)
[2022-09-13] MEDS: traZODone HCl 50 MG TAB PO SCH (21:15)
[2022-09-14 04:56] LABS: Anion Gap 17 mmol/L (10-20); BUN (Urea Nitrogen) 70 mg/dL (8.4-25.7); Calc. Creatinine Clearance 17 mL/min (70-130); Calcium 8.1 mg/dL (7.8-10.44); Carbon Dioxide 27 mmol/L (23-31); Chloride 97 mmol/L (98-107); Estimated GFR 10; Glucose 113 mg/dL (83-110); Potassium 3.9 mmol/L (3.5-5.1); Sodium 137 mmol/L (136-145)
[2022-09-14 05:03] LABS: #Eosinphils 0.5 10x3/uL (0.0-0.5); #Monocytes 1.5 10x3/uL (0.0-1.1); #Neutrophils 7.4 10x3/uL (1.5-8.4); %Basophils 0.4 % (0.0-2.0); %Eosinophils 5.1 % (0.0-6.0); %Lymphocytes 7.9 % (18.0-47.0); %Monocytes 14.2 % (0.0-10.0); %Neutrophils 71.3 % (40.0-75.0); Hemoglobin 7.8 g/dL (13.5-17.5); Mean Corpuscular HGB CONC 31.1 g/dL (32.0-36.0); Mean Corpuscular Hemoglobin 28.7 pg (27.0-33.0); Mean Corpuscular Volume 92.3 fl (81.2-95.1); Mean Platelet Volume 9.1 fl (7.4-10.4); Platelet Count 165 10x3/uL (150-450); RBC Distribution Width 15.4 % (11.5-14.5); Red Blood Cell (RBC) Count 2.72 10x6/uL (4.32-5.72); White Blood Cell (WBC) Count 10.4 10x3/uL (3.5-10.5)
[2022-09-14] MEDS: Furosemide 40 MG/4 ML VIAL SLOW IVP SCH ×2 (06:41→14:18)
[2022-09-14] MEDS ORDERED: Folic Acid/Vit B Comp W-C PO SCH (09:00)
[2022-09-14] MEDS: Alogliptin 25 MG TAB PO SCH (09:31)
[2022-09-14] MEDS: glipiZIDE 5 MG TAB PO SCH (09:31)
[2022-09-14] MEDS: Amlodipine 10 MG TAB PO SCH (09:32)
[2022-09-14] MEDS: Atorvastatin Calcium 40 MG TAB PO SCH (09:32)
[2022-09-14] MEDS: Carvedilol 25 MG TAB PO SCH (09:32)
[2022-09-14] MEDS: Ascorbic Acid 500 mg Chewable Tablet PO SCH (09:32)
[2022-09-14] MEDS: Spironolactone 25 MG TAB PO SCH (09:33)
[2022-09-14] MEDS: hydrALAZINE 25 MG TAB PO SCH ×2 (09:33→15:19)
[2022-09-14] MEDS: Doxycycline 100 MG CAP PO SCH (10:28)
[2022-09-14 14:15] VITALS: TEMP 98.3
[2022-09-14 17:06] VITALS: BP 175/76
== END 2022-09-14 17:00 | disposition home or self-care (01) | DRG 280 ==
LOC: CSHERS 12:22 → CSHIMCU 16:38 → OBSVTOIN 09-12 13:22 → CSHTELE 09-12 20:05
PROVIDERS: ADMIT Internal Medicine; ATTEND Internal Medicine
PROC: 30243N1 Transfusion of Nonautologous Red Blood Cells into Central Vein, Percutaneous Approach (ICD-10-PCS; principal; 2022-09-14)
DX: I13.2 Hypertensive heart and chronic kidney disease with heart failure and with stage 5 chronic kidney disease, or end stage renal disease (principal); I50.43 Acute on chronic combined systolic (congestive) and diastolic (congestive) heart failure; I21.A1 Myocardial infarction type 2; J96.21 Acute and chronic respiratory failure with hypoxia; N18.6 End stage renal disease; K92.1 Melena; D62 Acute posthemorrhagic anemia; Z20.822 Contact with and (suspected) exposure to COVID-19; D63.1 Anemia in chronic kidney disease; R79.89 Other specified abnormal findings of blood chemistry; E11.22 Type 2 diabetes mellitus with diabetic chronic kidney disease; I25.10 Atherosclerotic heart disease of native coronary artery without angina pectoris; I44.7 Left bundle-branch block, unspecified; E78.5 Hyperlipidemia, unspecified; K21.9 Gastro-esophageal reflux disease without esophagitis; G47.33 Obstructive sleep apnea (adult) (pediatric); Z86.73 Personal history of transient ischemic attack (TIA), and cerebral infarction without residual deficits; Z87.01 Personal history of pneumonia (recurrent); Z79.899 Other long term (current) drug therapy; Z99.2 Dependence on renal dialysis; Z95.1 Presence of aortocoronary bypass graft; Z95.2 Presence of prosthetic heart valve; Z82.49 Family history of ischemic heart disease and other diseases of the circulatory system; Z98.41 Cataract extraction status, right eye; Z98.42 Cataract extraction status, left eye
CPT/HCPCS: 36415; 36416; 36430; 71045; 80048; 80053; 82274; 82553; 83605; 83735; 83880; 84484; 85025; 85046; 85610; 85730; 86850; 86900; 86901; 90945; 93005; 94760; 96374; 96375; 96376; G0257; G0378; J0360; J1940; P9016; Q5105